=== PATIENT | male | born 1950 | race African-American/Black ===

== ENCOUNTER → 2017-02-24 16:32 | Outpatient (CLI) | payer MEDICARE ==
[~2017-02-24 16:32] MED LIST: DIOVAN HCT 320/1 TA2 PO; METHADONE 10 MG10 MG PO; NEURONTIN 300300 MG PO; NORVASC5 MG PO; PHENERGAN25 M1 PO; PLAVIX75 MG PO; PROAIR HFA8.5 GM INH; SYMBICORT 80-10.2 GM INH; ZANAFLEX4 MG PO; ZOCOR40 MG PO
[2017-03-25 18:09] VITALS: BMI 38.6
== END | disposition home or self-care (01) ==
LOC: D.US 16:30
DX: I65.23 Occlusion and stenosis of bilateral carotid arteries (principal)

== ENCOUNTER 2017-03-18 05:07 | Inpatient (IN) | payer MEDICARE ==
[2017-03-17 14:33] LABS: HEMATOCRIT 42.6 % (42.0-54.0); HEMOGLOBIN 13.9 g/dL (13.5-17.5); MCH 27.9 pg (26.0-34.0); MCHC 32.6 g/dL (31.0-37.0); MCV 85.4 fL (80.0-100.0); MEAN PLATELET VOLUME 8.4 fL (7.4-10.4); RBC 4.99 10x6/uL (4.20-6.10); RDW 13.3 % (11.5-14.5); WBC 4.8 10x3/uL (4.8-10.8)
[2017-03-17 14:50] LABS: APPEARANCE CLEAR (CLEAR); APTT 28.5 SECONDS (22.8-39.4); BILIRUBIN NEGATIVE (NEGATIVE); COLOR YELLOW (YELLOW); GLUCOSE NEGATIVE (NEGATIVE); INR 0.99 (0.85-1.17); KETONE NEGATIVE (NEGATIVE); NITRITE NEGATIVE (NEGATIVE); PROTEIN NEGATIVE (NEGATIVE); PROTIME 12.7 SECONDS (11.6-15.0); UROBILINOGEN NORMAL (NORMAL)
[2017-03-17 14:57] LABS: ALBUMIN 3.5 g/dL (3.4-5.0); ALKALINE PHOSPHATASE 53 U/L (46-116); ALT (SGPT) 28 U/L (10-68); BILIRUBIN - TOTAL 0.39 mg/dL (0.2-1.3); CALC OSMOLALITY 275 mosm/kg (275-300); CALCIUM 8.9 mg/dL (8.5-10.1); CARBON DIOXIDE 29.6 mmol/L (21.0-32.0); CHLORIDE - SERUM 101 mmol/L (98-107); GLUCOSE 104 mg/dL (74-106); POTASSIUM - SERUM 4.2 mmol/L (3.5-5.1); PROTEIN - SERUM 7.3 g/dL (6.4-8.2); SODIUM 138 mmol/L (136-145); UREA NITROGEN 12 mg/dL (7-18); eGFR NON AFRICAN AMERICAN 79 mL/min (90-120)
[2017-03-18] VITALS (17 sets, daily range): BP systolic 95–166; BP diastolic 45–104; BMI 35.5
[~2017-03-18] VITALS: Ht 185.4 cm; Wt 113.9 kg
--- NOTE | ~2017-03-18 | CN ---
PATIENT NAME:SILVIO BOOKER MEDICAL RECORD: [id number] : 48 LOCATION:[facility] ADMIT DATE: 03/18/17 ACCOUNT: [id number] CONSULTING PHYSICIAN: DAVID LOZA MD REFERRING PHYSICIAN: YONY HCI MD DATE OF CONSULTATION: 03/24/2017 CONSULT REQUESTING PHYSICIAN: Dr. Yony Chi. REASON FOR CONSULTATION: Dyspnea, status post right upper lobe lobectomy, COPD. HISTORY OF PRESENT ILLNESS: Mr. Booker is a 66-year-old gentleman who has a history of COPD, obstructive sleep apnea. The patient underwent a right upper lobe lobectomy on 03/18/2017. The patient running some low-grade fever. He has cough without much sputum production. He has shortness of breath with exertion and requiring oxygen. REVIEW OF SYSTEMS: Mainly in the history of present illness. PAST MEDICAL HISTORY: 1. COPD. 2. Obstructive sleep apnea. 3. Recently diagnosed with a squamous cell carcinoma of the right upper lobe. 4. Coronary artery disease. 5. Hyperlipidemia. 6. Hypertension. 7. Arthritis. PAST SURGICAL HISTORY: He is status post right upper lobe lobectomy. He has arthroscopic left knee surgery. ALLERGIES: There are no known drug allergies. MEDICATIONS: On [employer] was reviewed. PERSONAL AND SOCIAL HISTORY: The patient is an ex-smoker. He quit smoking 3-4 years ago. He is a nondrinker. FAMILY HISTORY: Noncontributory. PHYSICAL EXAMINATION: GENERAL: Now, the patient is sitting in chair, wearing nasal cannula oxygen. He is not in acute distress. VITAL SIGNS: The blood pressure is 108/60, pulse is 110, respiration is 28, temperature is 100, SpO2 is 94% to 99% on nasal cannula. HEENT: Conjunctivae pink, sclerae nonicteric. NECK: Neck is supple, no JVD. CHEST: There is decreased breath sound at the right apex. There is a wheeze on forceful expiration. HEART: Rate and rhythm is regular, normal sound, no murmur. ABDOMEN: Abdomen is soft. Bowel sounds present. No hepatosplenomegaly. RECTAL: Deferred. EXTREMITIES: No cyanosis, no clubbing, no pedal edema. CENTRAL NERVOUS SYSTEM: The patient is awake and alert. There is no obvious cranial nerve abnormality. The gait was not tested. CONSULT REPORT [id number] SILVIO BOOKER LABORATORY DATA: CBC: The WBC is 15.1, hemoglobin 12.8, hematocrit 39.4, and platelet count 270. Chemistry: Sodium 133, potassium is 4.1, BUN is 19, creatinine 0.9, glucose 120. CHEST RADIOGRAPH: There is elevation of the right hemidiaphragm with a chest tube in place. There is some atelectatic change at the bases. IMPRESSION: 1. Acute exacerbation of chronic obstructive pulmonary disease. 2. Acute hypoxic respiratory failure. 3. Tracheobronchitis with low-grade fever as well as leukocytosis. 4. Dyspnea on exertion. 5. Status post right upper lobe lobectomy. 6. Squamous cell carcinoma of the lung, right upper lobe, stage I. 7. Obstructive sleep apnea. The patient is noncompliant with CPAP machine. RECOMMENDATION: 1. Start him on doxycycline empirically. 2. Methylprednisolone IV. 3. Brovana, budesonide nebulizer. 4. Albuterol, ipratropium nebulizer. Albuterol nebulizer p.r.n. Discontinue Advair. 5. Follow up labs and chest radiograph. Dr. Chi, thank you for involving me in the care of Mr. Booker. TRANSINT:[id number] Voice Confirmation ID: [id number] DOCUMENT ID: [id number] DAVID LOZA MD at 1406 CC: YONY CHI MD [id number] DICTATION DATE: 03/24/17 1411 BILLET STRAIGHTENER: 03/24/17 192 ADM IN [place] [id number] [place] [address]
--- NOTE | ~2017-03-18 | OP ---
PATIENT NAME: SILVIO BOOKER MEDICAL RECORD: [id number] :48 LOCATION:[facility] ADMISSION DATE:03/18/17 SURGEON: FINESSE YADAV MD DATE OF OPERATION: 04/01/2017 SURGEON: Finesse Yadav MD ANESTHESIA: General endotracheal, Dr. Park. OPERATION PERFORMED: 1. Placement of a 20 anterior superior apical chest tube. 2. Flexible fiberoptic bronchoscopy. PREOPERATIVE DIAGNOSIS: Persistent pneumothorax. POSTOPERATIVE DIAGNOSIS: Persistent pneumothorax. INDICATION FOR OPERATION: Persistent pneumothorax. FINDINGS OF THE OPERATION: The right upper lobe bronchus well sealed on flexible fiberoptic bronchoscopy. There was a pneumothorax on the right when the tube was placed. ESTIMATED BLOOD LOSS: Less than 3 cc. DESCRIPTION OF PROCEDURE: After informed consent and adequate preoperative medication evaluation, the patient was brought to the operating room, placed on the table in the supine position. After induction of general anesthesia and application of appropriate monitoring devices, the thoracic vent in the left anterior chest was removed. The chest was prepped and draped in a sterile field utilizing ChloraPrep. A sterile field was performed. A small incision was made over the 3rd rib. A 20 trocar catheter was then placed in the right hemithorax and placed in the apex. This was secured with a 0 silk suture. Sterile dressing was applied. The patient then underwent flexible fiberoptic bronchoscopy with the above findings and well sealed right upper lobe bronchial stump. The patient tolerated the procedure well and was transferred to ICU in satisfactory condition. TRANSINT:[id number] Voice Confirmation ID: [id number] DOCUMENT ID: [id number] FINESSE YADAV MD at 1337 CC: [id number] DICTATION DATE: 04/01/17 1516 ULTRASOUND MANAGER: 04/01/17 1603 [place] [address]
--- NOTE | ~2017-03-18 | OP ---
PATIENT NAME: SILVIO BOOKER MEDICAL RECORD: [id number] :48 LOCATION:[facility]06 ADMISSION DATE:03/18/17 SURGEON: FINESSE YADAV MD DATE OF OPERATION: 03/18/2017 SURGEON: Finesse Yadav MD ANESTHESIA: General endotracheal, Dr. Hernandez. OPERATION PERFORMED: Right thoracotomy with right upper lobe resection and mediastinal lymphadenectomy. PREOPERATIVE DIAGNOSIS: Carcinoma, right upper lobe. POSTOPERATIVE DIAGNOSIS: Carcinoma, right upper lobe. INDICATION FOR OPERATION: Carcinoma, right upper lobe. FINDINGS OF THE OPERATION: Carcinoma, right upper lobe. There were lymph nodes at level R7 and level R10. There were no R4 nodes or nodes at level 8 or 9. ESTIMATED BLOOD LOSS: Less than 150 mL. DESCRIPTION OF PROCEDURE: After informed consent, adequate preoperative medication and evaluation, the patient was brought to the operating room, placed on the table in the supine position. After induction of general endotracheal anesthesia and application of appropriate monitoring devices, the flexible fiberoptic bronchoscopy and placement of a double lumen tube, the patient was turned in a left lateral decubitus position, protecting the pressure points and neurologic structures. The right chest was prepped and draped in a sterile field, utilizing Betadine scrub, alcohol, and Betadine solution. A Betadine-impregnated drape was also used. A small posterolateral thoracotomy incision was made and dissection carried down the fascia. Hemostasis maintained with electrocautery. The fifth interspace was identified and opened. The lung was examined, the above findings were noted. The carcinoma was palpable in the right upper lobe. There was no involvement of the visceral pleura. The fissures were 80% complete anterior and posterior and the major fissure was complete at the hilum. An incision was made in the hilar pleura and the pulmonary artery dissected proximally. Attention was then turned toward the upper lobe vein. The upper lobe vein was identified from the middle lobe vein. The trunk to the right upper lobe was then dissected sharply after incising the pleura over the hilum and posteriorly. The edges of the upper lobe bronchus were also identified and all lymph nodes dissected with the specimen. The trunk to the upper lobe was divided utilizing an Endo-KYAW stapler. The fissures were completed in the minor fissure and posterior major fissure. The vein to the upper lobe was then divided with an Endo-KYAW stapler. Dissection was then performed around the hilum and the level 10 nodes sent to pathology as a separate specimen. The upper lobe bronchus was identified and tested, it was divided utilizing a TA 30 stapler 4.8. Attention was then turned toward the hilum posteriorly and the level 7 node excised. Attention was then turned toward the azygos vein and superior vena cava, this was elevated and the lateral and anterior trachea dissected without evidence of any lymph nodes. Attention was then turned to the inferior pulmonary ligament and level 8 where there were also no nodes. The chest was irrigated with copious amounts of normal saline and there were no air leaks. The chest was again irrigated. Two #32 chest OPERATIVE REPORT [id number] SILVIO BOOKER tubes were placed, one anteriorly and superiorly and one inferiorly and posteriorly. The chest was again irrigated. Instrument count and sponge counts were correct times 2. Chest was closed in layers utilizing #2 Vicryl pericostal sutures, #1 Vicryl on the muscle, 3-0 Vicryl on the subcutaneous tissue and skin approximated with 3-0 subcuticular Vicryl. Sterile dressings were applied. The patient turned in a supine position. The double lumen tube was exchanged for a single lumen tube. Flexible fiberoptic bronchoscopy demonstrated good closure of the bronchial stump and no endobronchial blood or mucus bilaterally. The scope was withdrawn. The patient awakened and transferred to the [facility] ICU in satisfactory condition. TRANSINT:[id number] Voice Confirmation ID: [id number] DOCUMENT ID: [id number] FINESSE YADAV MD at 1323 CC: [id number] DICTATION DATE: 03/18/17 1140 GLAZE SUPERVISOR: 03/18/17 1320 ADM IN [place] [id number] [place] [id number]
[2017-03-19] VITALS (33 sets, daily range): BP systolic 93–158; BP diastolic 47–76; BMI 38.6
[2017-03-19 06:17] LABS: HEMATOCRIT 37.3 % (42.0-54.0); MCH 27.6 pg (26.0-34.0); MCHC 32.2 g/dL (31.0-37.0); MCV 85.9 fL (80.0-100.0); MEAN PLATELET VOLUME 8.4 fL (7.4-10.4); RBC 4.34 10x6/uL (4.20-6.10); RDW 13.5 % (11.5-14.5)
[2017-03-19 06:18] LABS: WBC 9.2 10x3/uL (4.8-10.8)
[2017-03-19 06:51] LABS: ALBUMIN 2.7 g/dL (3.4-5.0); ALKALINE PHOSPHATASE 40 U/L (46-116); ALT (SGPT) 32 U/L (10-68); BILIRUBIN - TOTAL 0.59 mg/dL (0.2-1.3); CALC OSMOLALITY 279 mosm/kg (275-300); CALCIUM 8.2 mg/dL (8.5-10.1); CARBON DIOXIDE 29.9 mmol/L (21.0-32.0); CHLORIDE - SERUM 103 mmol/L (98-107); GLUCOSE 134 mg/dL (74-106); POTASSIUM - SERUM 4.1 mmol/L (3.5-5.1); PROTEIN - SERUM 6.2 g/dL (6.4-8.2); SODIUM 138 mmol/L (136-145); UREA NITROGEN 17 mg/dL (7-18); eGFR NON AFRICAN AMERICAN 79 mL/min (90-120)
[2017-03-20] VITALS (39 sets, daily range): BP systolic 98–154; BP diastolic 44–91
[2017-03-20 06:33] LABS: HEMATOCRIT 35.7 % (42.0-54.0); HEMOGLOBIN 11.3 g/dL (13.5-17.5); MCH 27.8 pg (26.0-34.0); MCHC 31.7 g/dL (31.0-37.0); MEAN PLATELET VOLUME 8.5 fL (7.4-10.4); RBC 4.06 10x6/uL (4.20-6.10); RDW 13.9 % (11.5-14.5); WBC 8.4 10x3/uL (4.8-10.8)
[2017-03-20 06:37] LABS: MCV 87.9 fL (80.0-100.0)
[2017-03-20 07:15] LABS: ALBUMIN 2.5 g/dL (3.4-5.0); ALKALINE PHOSPHATASE 40 U/L (46-116); ALT (SGPT) 27 U/L (10-68); CALC OSMOLALITY 275 mosm/kg (275-300); CALCIUM 8.3 mg/dL (8.5-10.1); CARBON DIOXIDE 27.3 mmol/L (21.0-32.0); CHLORIDE - SERUM 104 mmol/L (98-107); CREATININE - SERUM 0.8 mg/dL (0.6-1.3); GLUCOSE 119 mg/dL (74-106); POTASSIUM - SERUM 4.4 mmol/L (3.5-5.1); PROTEIN - SERUM 6.1 g/dL (6.4-8.2); SODIUM 137 mmol/L (136-145); UREA NITROGEN 14 mg/dL (7-18); eGFR NON AFRICAN AMERICAN > 90 mL/min (90-120)
[2017-03-21] VITALS (24 sets, daily range): BP systolic 109–145; BP diastolic 55–80
[2017-03-21 05:35] LABS: HEMOGLOBIN 10.9 g/dL (13.5-17.5); MCH 27.9 pg (26.0-34.0); MCHC 32.1 g/dL (31.0-37.0); MCV 87.2 fL (80.0-100.0); MEAN PLATELET VOLUME 8.5 fL (7.4-10.4); RBC 3.9 10x6/uL (4.20-6.10); WBC 8.1 10x3/uL (4.8-10.8)
[2017-03-21 05:49] LABS: ALBUMIN 2.3 g/dL (3.4-5.0); ALKALINE PHOSPHATASE 39 U/L (46-116); ALT (SGPT) 26 U/L (10-68); BILIRUBIN - TOTAL 0.65 mg/dL (0.2-1.3); CALC OSMOLALITY 271 mosm/kg (275-300); CALCIUM 8.4 mg/dL (8.5-10.1); CARBON DIOXIDE 29.6 mmol/L (21.0-32.0); CHLORIDE - SERUM 101 mmol/L (98-107); CREATININE - SERUM 0.8 mg/dL (0.6-1.3); GLUCOSE 115 mg/dL (74-106); POTASSIUM - SERUM 4.4 mmol/L (3.5-5.1); PROTEIN - SERUM 6.1 g/dL (6.4-8.2); SODIUM 135 mmol/L (136-145); UREA NITROGEN 16 mg/dL (7-18); eGFR NON AFRICAN AMERICAN > 90 mL/min (90-120)
[2017-03-22] VITALS (24 sets, daily range): BP systolic 96–189; BP diastolic 51–100
[2017-03-22 06:58] LABS: HEMATOCRIT 34.6 % (42.0-54.0); HEMOGLOBIN 11.1 g/dL (13.5-17.5); MCHC 32.1 g/dL (31.0-37.0); MCV 87.4 fL (80.0-100.0); MEAN PLATELET VOLUME 8.8 fL (7.4-10.4); RBC 3.96 10x6/uL (4.20-6.10); RDW 13.7 % (11.5-14.5); WBC 7.7 10x3/uL (4.8-10.8)
[2017-03-22 07:22] LABS: ALBUMIN 2.5 g/dL (3.4-5.0); ALKALINE PHOSPHATASE 40 U/L (46-116); ALT (SGPT) 39 U/L (10-68); BILIRUBIN - TOTAL 0.59 mg/dL (0.2-1.3); CALC OSMOLALITY 272 mosm/kg (275-300); CALCIUM 8.8 mg/dL (8.5-10.1); CARBON DIOXIDE 31.9 mmol/L (21.0-32.0); CHLORIDE - SERUM 100 mmol/L (98-107); CREATININE - SERUM 0.9 mg/dL (0.6-1.3); GLUCOSE 105 mg/dL (74-106); POTASSIUM - SERUM 4.9 mmol/L (3.5-5.1); PROTEIN - SERUM 6.4 g/dL (6.4-8.2); SODIUM 135 mmol/L (136-145); UREA NITROGEN 20 mg/dL (7-18); eGFR NON AFRICAN AMERICAN 89 mL/min (90-120)
[2017-03-23] VITALS (23 sets, daily range): BP systolic 111–158; BP diastolic 71–90
[2017-03-23 06:25] LABS: HEMATOCRIT 37.1 % (42.0-54.0); HEMOGLOBIN 11.8 g/dL (13.5-17.5); MCH 27.6 pg (26.0-34.0); MCHC 31.8 g/dL (31.0-37.0); MCV 86.9 fL (80.0-100.0); MEAN PLATELET VOLUME 8.5 fL (7.4-10.4); RBC 4.27 10x6/uL (4.20-6.10); RDW 13.6 % (11.5-14.5); WBC 8.4 10x3/uL (4.8-10.8)
[2017-03-23 06:40] LABS: ALBUMIN 2.5 g/dL (3.4-5.0); ALKALINE PHOSPHATASE 43 U/L (46-116); ALT (SGPT) 48 U/L (10-68); BILIRUBIN - TOTAL 0.59 mg/dL (0.2-1.3); CALC OSMOLALITY 268 mosm/kg (275-300); CALCIUM 8.5 mg/dL (8.5-10.1); CARBON DIOXIDE 29.4 mmol/L (21.0-32.0); CHLORIDE - SERUM 98 mmol/L (98-107); CREATININE - SERUM 0.9 mg/dL (0.6-1.3); GLUCOSE 107 mg/dL (74-106); POTASSIUM - SERUM 4.2 mmol/L (3.5-5.1); PROTEIN - SERUM 6.7 g/dL (6.4-8.2); SODIUM 133 mmol/L (136-145); UREA NITROGEN 20 mg/dL (7-18); eGFR NON AFRICAN AMERICAN 89 mL/min (90-120)
[2017-03-24] VITALS (24 sets, daily range): BP systolic 94–127; BP diastolic 7–87
[2017-03-24 06:30] LABS: HEMATOCRIT 39.4 % (42.0-54.0); HEMOGLOBIN 12.8 g/dL (13.5-17.5); MCH 27.9 pg (26.0-34.0); MCHC 32.5 g/dL (31.0-37.0); MCV 85.8 fL (80.0-100.0); MEAN PLATELET VOLUME 8.5 fL (7.4-10.4); RBC 4.59 10x6/uL (4.20-6.10); RDW 13.4 % (11.5-14.5); WBC 15.1 10x3/uL (4.8-10.8)
[2017-03-24 06:45] LABS: ALBUMIN 2.7 g/dL (3.4-5.0); ALKALINE PHOSPHATASE 51 U/L (46-116); ALT (SGPT) 46 U/L (10-68); BILIRUBIN - TOTAL 0.94 mg/dL (0.2-1.3); CALC OSMOLALITY 268 mosm/kg (275-300); CALCIUM 8.6 mg/dL (8.5-10.1); CARBON DIOXIDE 27.3 mmol/L (21.0-32.0); CHLORIDE - SERUM 97 mmol/L (98-107); CREATININE - SERUM 0.9 mg/dL (0.6-1.3); GLUCOSE 120 mg/dL (74-106); POTASSIUM - SERUM 4.1 mmol/L (3.5-5.1); PROTEIN - SERUM 7.4 g/dL (6.4-8.2); SODIUM 133 mmol/L (136-145); UREA NITROGEN 19 mg/dL (7-18); eGFR NON AFRICAN AMERICAN 89 mL/min (90-120)
[2017-03-25] VITALS (24 sets, daily range): BP systolic 91–131; BP diastolic 43–75; Ht 185.4 cm; Wt 113.9 kg
[2017-03-25 06:18] LABS: HEMATOCRIT 36.7 % (42.0-54.0); MCH 28.2 pg (26.0-34.0); MCHC 32.7 g/dL (31.0-37.0); MCV 86.2 fL (80.0-100.0); MEAN PLATELET VOLUME 8.7 fL (7.4-10.4); RBC 4.26 10x6/uL (4.20-6.10); RDW 13.6 % (11.5-14.5)
[2017-03-25 06:19] LABS: WBC 19.5 10x3/uL (4.8-10.8)
[2017-03-25 06:52] LABS: ALBUMIN 2.5 g/dL (3.4-5.0); ANION GAP 13.5 mmol/L (8-16); BILIRUBIN - TOTAL 0.48 mg/dL (0.2-1.3); CALCIUM 8.7 mg/dL (8.5-10.1); CARBON DIOXIDE 27.2 mmol/L (21.0-32.0); POTASSIUM - SERUM 4.7 mmol/L (3.5-5.1); PROTEIN - SERUM 7.2 g/dL (6.4-8.2)
[2017-03-25 06:57] LABS: CREATININE - SERUM 1.5 mg/dL (0.6-1.3)
[2017-03-26] VITALS (23 sets, daily range): BP systolic 93–125; BP diastolic 44–84
[2017-03-26 07:00] LABS: HEMATOCRIT 38.4 % (42.0-54.0); HEMOGLOBIN 12.5 g/dL (13.5-17.5); MCHC 32.6 g/dL (31.0-37.0); MCV 86.1 fL (80.0-100.0); MEAN PLATELET VOLUME 8.3 fL (7.4-10.4); RBC 4.46 10x6/uL (4.20-6.10); RDW 13.5 % (11.5-14.5); WBC 20.2 10x3/uL (4.8-10.8)
[2017-03-26 07:32] LABS: ALBUMIN 2.9 g/dL (3.4-5.0); ANION GAP 16.9 mmol/L (8-16); BILIRUBIN - TOTAL 0.37 mg/dL (0.2-1.3); CALCIUM 8.7 mg/dL (8.5-10.1); CARBON DIOXIDE 25.8 mmol/L (21.0-32.0); CREATININE - SERUM 2.6 mg/dL (0.6-1.3); POTASSIUM - SERUM 4.7 mmol/L (3.5-5.1); PROTEIN - SERUM 7.7 g/dL (6.4-8.2)
[2017-03-26 21:51] LABS: CREATININE - URINE 58.8 mg/dL (30-125)
[2017-03-26 22:12] LABS: APPEARANCE CLEAR (CLEAR); BILIRUBIN NEGATIVE (NEGATIVE); COLOR YELLOW (YELLOW); GLUCOSE NEGATIVE (NEGATIVE); KETONE NEGATIVE (NEGATIVE); NITRITE NEGATIVE (NEGATIVE); PROTEIN TRACE mg/dL (NEGATIVE); SPECIFIC GRAVITY 1.015 (1.005-1.020); UROBILINOGEN NORMAL (NORMAL)
[2017-03-27] VITALS (24 sets, daily range): BP systolic 100–148; BP diastolic 62–102
[2017-03-27 05:12] LABS: BASOPHILS 0 % (0-2); EOSINOPHILS 0 % (0-7); HEMATOCRIT 36.5 % (42.0-54.0); IMMATURE GRANULOCYTES 1.2 % (0-5); LYMPHOCYTES 5.9 % (15-50); MCH 27.7 pg (26.0-34.0); MCHC 32.9 g/dL (31.0-37.0); MCV 84.3 fL (80.0-100.0); MEAN PLATELET VOLUME 8.5 fL (7.4-10.4); NEUTROPHILS 86.9 % (40-80); PLATELET COUNT 366 10x3/uL (130-400); RBC 4.33 10x6/uL (4.20-6.10); RDW 13.5 % (11.5-14.5)
[2017-03-27 05:19] LABS: WBC 15.1 10x3/uL (4.8-10.8)
[2017-03-27 05:32] LABS: ALBUMIN 2.8 g/dL (3.4-5.0); ANION GAP 16.7 mmol/L (8-16); BILIRUBIN - TOTAL 0.35 mg/dL (0.2-1.3); CALCIUM 8.6 mg/dL (8.5-10.1); CARBON DIOXIDE 23.4 mmol/L (21.0-32.0); CREATININE - SERUM 2.7 mg/dL (0.6-1.3); POTASSIUM - SERUM 5.1 mmol/L (3.5-5.1); PROTEIN - SERUM 7.1 g/dL (6.4-8.2)
[2017-03-28] VITALS (25 sets, daily range): BP systolic 109–153; BP diastolic 62–107
[2017-03-28 06:11] LABS: HEMATOCRIT 36.9 % (42.0-54.0); HEMOGLOBIN 12.2 g/dL (13.5-17.5); MCH 27.9 pg (26.0-34.0); MCHC 33.1 g/dL (31.0-37.0); MCV 84.4 fL (80.0-100.0); MEAN PLATELET VOLUME 8.2 fL (7.4-10.4); RBC 4.37 10x6/uL (4.20-6.10); RDW 13.5 % (11.5-14.5); WBC 14.3 10x3/uL (4.8-10.8)
[2017-03-28 06:35] LABS: ANION GAP 14.1 mmol/L (8-16); BILIRUBIN - TOTAL 0.35 mg/dL (0.2-1.3); CALCIUM 8.5 mg/dL (8.5-10.1); CARBON DIOXIDE 24.1 mmol/L (21.0-32.0); CREATININE - SERUM 1.6 mg/dL (0.6-1.3); POTASSIUM - SERUM 5.2 mmol/L (3.5-5.1); PROTEIN - SERUM 7.2 g/dL (6.4-8.2)
[2017-03-29] VITALS (21 sets, daily range): BP systolic 106–133; BP diastolic 64–85
[2017-03-29 05:49] LABS: HEMATOCRIT 39.6 % (42.0-54.0); HEMOGLOBIN 12.9 g/dL (13.5-17.5); MCH 27.9 pg (26.0-34.0); MCHC 32.6 g/dL (31.0-37.0); MCV 85.5 fL (80.0-100.0); MEAN PLATELET VOLUME 8.2 fL (7.4-10.4); RBC 4.63 10x6/uL (4.20-6.10); RDW 13.7 % (11.5-14.5); WBC 17.8 10x3/uL (4.8-10.8)
[2017-03-29 06:12] LABS: ALBUMIN 3.2 g/dL (3.4-5.0); ANION GAP 11.6 mmol/L (8-16); BILIRUBIN - TOTAL 0.61 mg/dL (0.2-1.3); CALCIUM 8.7 mg/dL (8.5-10.1); CARBON DIOXIDE 27.9 mmol/L (21.0-32.0); CREATININE - SERUM 1.2 mg/dL (0.6-1.3); POTASSIUM - SERUM 5.5 mmol/L (3.5-5.1); PROTEIN - SERUM 7.3 g/dL (6.4-8.2)
[2017-03-30] VITALS (25 sets, daily range): BP systolic 106–163; BP diastolic 61–96
[2017-03-30 07:17] LABS: ALBUMIN 3.3 g/dL (3.4-5.0); ANION GAP 11.8 mmol/L (8-16); BILIRUBIN - TOTAL 0.59 mg/dL (0.2-1.3); CALCIUM 8.9 mg/dL (8.5-10.1); CARBON DIOXIDE 28.9 mmol/L (21.0-32.0); CREATININE - SERUM 1.1 mg/dL (0.6-1.3); POTASSIUM - SERUM 4.7 mmol/L (3.5-5.1); PROTEIN - SERUM 7.5 g/dL (6.4-8.2)
[2017-03-30 07:47] LABS: HEMOGLOBIN 13.2 g/dL (13.5-17.5); MCH 28.1 pg (26.0-34.0); MCV 85.1 fL (80.0-100.0); MEAN PLATELET VOLUME 8.2 fL (7.4-10.4); PLATELET COUNT 377 10x3/uL (130-400); RDW 13.6 % (11.5-14.5)
[2017-03-30 09:02] LABS: EOSINOPHILS 1 % (0-7); LYMPHOCYTES 11 % (15-50); MONOCYTES 11 % (2-11); NEUTROPHILS 71 % (40-80); PLATELET ESTIMATE NORMAL
[2017-03-31] VITALS (23 sets, daily range): BP systolic 105–143; BP diastolic 55–92
[2017-03-31 06:48] LABS: BASOPHILS 0.1 % (0-2); EOSINOPHILS 0.5 % (0-7); HEMATOCRIT 37.5 % (42.0-54.0); HEMOGLOBIN 12.3 g/dL (13.5-17.5); IMMATURE GRANULOCYTES 2.7 % (0-5); LYMPHOCYTES 21.8 % (15-50); MCH 27.6 pg (26.0-34.0); MCHC 32.8 g/dL (31.0-37.0); MCV 84.1 fL (80.0-100.0); MEAN PLATELET VOLUME 8.1 fL (7.4-10.4); MONOCYTES 9.3 % (2-11); NEUTROPHILS 65.6 % (40-80); PLATELET COUNT 369 10x3/uL (130-400); RBC 4.46 10x6/uL (4.20-6.10); RDW 13.6 % (11.5-14.5)
[2017-03-31 07:00] LABS: WBC 14.1 10x3/uL (4.8-10.8)
[2017-03-31 07:05] LABS: ALKALINE PHOSPHATASE 42 U/L (46-116); ALT (SGPT) 52 U/L (10-68); BILIRUBIN - TOTAL 0.73 mg/dL (0.2-1.3); CALC OSMOLALITY 271 mosm/kg (275-300); CALCIUM 8.5 mg/dL (8.5-10.1); CARBON DIOXIDE 27.7 mmol/L (21.0-32.0); CHLORIDE - SERUM 96 mmol/L (98-107); GLUCOSE 90 mg/dL (74-106); MAGNESIUM - SERUM 2.6 mg/dL (1.8-2.4); POTASSIUM - SERUM 4.5 mmol/L (3.5-5.1); PROTEIN - SERUM 6.6 g/dL (6.4-8.2); SODIUM 132 mmol/L (136-145); UREA NITROGEN 32 mg/dL (7-18); eGFR NON AFRICAN AMERICAN 79 mL/min (90-120)
[2017-04-01] VITALS (22 sets, daily range): BP systolic 107–147; BP diastolic 58–92
[2017-04-01 06:27] LABS: BASOPHILS 0 % (0-2); EOSINOPHILS 0.8 % (0-7); HEMATOCRIT 36.3 % (42.0-54.0); IMMATURE GRANULOCYTES 1.8 % (0-5); LYMPHOCYTES 22.7 % (15-50); MCH 27.5 pg (26.0-34.0); MCHC 33.1 g/dL (31.0-37.0); MCV 83.3 fL (80.0-100.0); MEAN PLATELET VOLUME 7.9 fL (7.4-10.4); MONOCYTES 9.2 % (2-11); NEUTROPHILS 65.5 % (40-80); PLATELET COUNT 360 10x3/uL (130-400); RBC 4.36 10x6/uL (4.20-6.10); RDW 13.4 % (11.5-14.5); WBC 11.9 10x3/uL (4.8-10.8)
[2017-04-01 06:47] LABS: CALC OSMOLALITY 270 mosm/kg (275-300); CALCIUM 8.5 mg/dL (8.5-10.1); CARBON DIOXIDE 28.5 mmol/L (21.0-32.0); CHLORIDE - SERUM 97 mmol/L (98-107); CREATININE - SERUM 0.9 mg/dL (0.6-1.3); GLUCOSE 91 mg/dL (74-106); SODIUM 133 mmol/L (136-145); UREA NITROGEN 27 mg/dL (7-18); eGFR NON AFRICAN AMERICAN 89 mL/min (90-120)
[2017-04-02] VITALS (24 sets, daily range): BP systolic 102–138; BP diastolic 58–97
[2017-04-03] VITALS (22 sets, daily range): BP systolic 92–127; BP diastolic 42–81
[2017-04-04] VITALS (23 sets, daily range): BP systolic 90–125; BP diastolic 56–82
[2017-04-04 04:10] LABS: BASOPHILS 0.1 % (0-2); EOSINOPHILS 0.7 % (0-7); HEMATOCRIT 36.4 % (42.0-54.0); IMMATURE GRANULOCYTES 1.8 % (0-5); LYMPHOCYTES 25.6 % (15-50); MCH 27.9 pg (26.0-34.0); MCV 84.7 fL (80.0-100.0); MEAN PLATELET VOLUME 7.8 fL (7.4-10.4); MONOCYTES 6.9 % (2-11); NEUTROPHILS 64.9 % (40-80); PLATELET COUNT 318 10x3/uL (130-400); RDW 13.4 % (11.5-14.5); WBC 12.8 10x3/uL (4.8-10.8)
[2017-04-04 04:28] LABS: ANION GAP 11.3 mmol/L (8-16); CALCIUM 8.6 mg/dL (8.5-10.1); CARBON DIOXIDE 28.8 mmol/L (21.0-32.0); CREATININE - SERUM 1.1 mg/dL (0.6-1.3); MAGNESIUM - SERUM 2.1 mg/dL (1.8-2.4); PHOSPHOROUS 4.1 mg/dL (2.5-4.9); POTASSIUM - SERUM 4.1 mmol/L (3.5-5.1)
[2017-04-05] VITALS (16 sets, daily range): BP systolic 91–123; BP diastolic 48–77
== END 2017-04-05 20:45 | disposition home or self-care (01) | DRG 163 ==
LOC: D.SDCHOLD 05:07 → D.CVICU 05:07 → D.SDCHOLD 07:30 → D.CVICU 11:11 → D.SDCHOLD 03-19 07:30 → D.CVICU 04-05 20:45
PROVIDERS: Internal Medicine Cardiovascular Disease; Internal Medicine Pulmonary Disease
PROC: 0BTC0ZZ Resection of Right Upper Lung Lobe, Open Approach (ICD-10-PCS; principal; 2017-03-18 07:30)
PROC: 07B70ZZ Excision of Thorax Lymphatic, Open Approach (ICD-10-PCS; 2017-03-18 07:30)
PROC: 0W9940Z Drainage of Right Pleural Cavity with Drainage Device, Percutaneous Endoscopic Approach (ICD-10-PCS; 2017-04-01)
DX: C34.11 Malignant neoplasm of upper lobe, right bronchus or lung (principal); J18.9 Pneumonia, unspecified organism; J95.812 Postprocedural air leak; N17.9 Acute kidney failure, unspecified; J95.811 Postprocedural pneumothorax; J44.1 Chronic obstructive pulmonary disease with (acute) exacerbation; G89.4 Chronic pain syndrome; I25.10 Atherosclerotic heart disease of native coronary artery without angina pectoris; I10 Essential (primary) hypertension; J44.9 Chronic obstructive pulmonary disease, unspecified; K59.00 Constipation, unspecified; Y83.8 Other surgical procedures as the cause of abnormal reaction of the patient, or of later complication, without mention of misadventure at the time of the procedure; Y82.8 Other medical devices associated with adverse incidents; T44.5X5A Adverse effect of predominantly beta-adrenoreceptor agonists, initial encounter; G47.33 Obstructive sleep apnea (adult) (pediatric)

== ENCOUNTER → 2017-04-09 12:46 | Outpatient (CLI) | payer MEDICARE ==
[2017-03-25 18:09] VITALS: BMI 38.6
== END | disposition home or self-care (01) ==
LOC: D.RAD 10:00
DX: J91.8 Pleural effusion in other conditions classified elsewhere (principal)

== ENCOUNTER → 2017-04-16 12:55 | Outpatient (CLI) | payer MEDICARE ==
[2017-03-25 18:09] VITALS: BMI 38.6
== END | disposition home or self-care (01) ==
LOC: D.RAD 09:00
DX: J91.8 Pleural effusion in other conditions classified elsewhere (principal); J93.9 Pneumothorax, unspecified

== ENCOUNTER → 2017-06-17 11:29 | Outpatient (CLI) | payer MEDICARE ==
[2017-03-25 18:09] VITALS: BMI 38.6
== END | disposition home or self-care (01) ==
LOC: D.CT 11:29
DX: C34.90 Malignant neoplasm of unspecified part of unspecified bronchus or lung (principal); R05 Cough; R06.02 Shortness of breath

== ENCOUNTER → 2019-03-20 11:31 | Outpatient (CLI) | payer MEDICARE ==
[2017-03-25 18:09] VITALS: BMI 38.6
== END | disposition home or self-care (01) ==
LOC: D.RAD 11:31
PROVIDERS: ATTEND Internal Medicine Cardiovascular Disease
DX: C34.90 Malignant neoplasm of unspecified part of unspecified bronchus or lung (principal)

== ENCOUNTER → 2019-04-24 09:31 | Outpatient (CLI) | payer MEDICARE ==
[2017-03-25 18:09] VITALS: BMI 38.6
== END | disposition home or self-care (01) ==
LOC: D.CT 09:30
PROVIDERS: ATTEND Internal Medicine Cardiovascular Disease
DX: R06.00 Dyspnea, unspecified (principal)